=== PATIENT | female | born 1970 | race Caucasian/White ===

== ENCOUNTER 2019-02-17 19:40 | Inpatient (IN) | payer BC, MEDICAID ==
[~2019-02-17] VITALS: Ht 175.3 cm; Wt 84.8 kg
[2019-02-17 19:55] VITALS: BP 113/72
[2019-02-17] MEDS ORDERED: FAMOTIDINE20 MG ORAL (19:55)
[2019-02-17] MEDS ORDERED: CALCIUM ACETAT667 MG PO (19:55)
[2019-02-17] MEDS ORDERED: LEVETIRACE100 MG/1 M GT (19:55)
[2019-02-17] MEDS ORDERED: ABILIFY2 MG ORAL (19:55)
[2019-02-17] MEDS ORDERED: LEXAPRO10 MG ORAL (19:55)
[2019-02-17] MEDS ORDERED: BISACODYL5 MG ORAL (19:55)
[2019-02-17] MEDS ORDERED: SEROQUEL25 MG ORAL (19:55)
[2019-02-17] MEDS ORDERED: BENADRYL25 MG ORAL (19:55)
[2019-02-17] MEDS ORDERED: MELATONIN3 M1 ORAL (19:55)
[2019-02-17] MEDS ORDERED: NEPHROVITE1 TAB ORAL (19:55)
[2019-02-17] MEDS ORDERED: RENVELA0.8 GM ORAL (19:55)
[2019-02-17] MEDS ORDERED: NORCO 5-325 TA1 EACH ORAL (19:55)
[2019-02-17] MEDS ORDERED: ACETAMINOPHEN325 M1 ORAL (19:55)
[2019-02-17] MEDS ORDERED: SENNOSIDES8.6 MG ORAL (19:55)
[2019-02-17] MEDS ORDERED: DOCUSATE SODIU100 MG ORAL (19:55)
--- NOTE | 2019-02-17 20:00 | NUR ---
ED Nurse Note: PATIENT WAS BIBA FROM [facility] FOR RIGHT UPPER ARM FISTULA MALFUNCTION. pATIENT IS BLINDE, aao X4, vss AT THIS TIME, SKIN IS DRY, WARM TO TOUCH.
[2019-02-17 21:08] LABS: EOSINOPHILS % (AUTO) 4.1 % (0.0-3.0); HEMATOCRIT 32.4 % (37.0-47.0); HEMOGLOBIN 10.9 G/DL (12.0-16.0); LYMPHOCYTES % (AUTO) 20.8 % (20.0-45.0); MEAN CORPUSCULAR VOLUME 89 FL (80-99); MONOCYTES % (AUTO) 10.2 % (1.0-10.0); NEUTROPHILS % (AUTO) 63.9 % (45.0-75.0); PLATELET COUNT 138 K/UL (150-450); RED BLOOD COUNT 3.65 M/UL (4.20-5.40); RED CELL DISTRIBUTION WIDTH 13.3 % (11.6-14.8); WHITE BLOOD COUNT 6.9 K/UL (4.8-10.8)
[2019-02-17 21:20] LABS: INR 0.9 (0.9-1.1)
[2019-02-17 21:25] LABS: ANION GAP 10 mmol/L (5-15); BLOOD UREA NITROGEN 82 mg/dL (7-18); CALCIUM 9.1 MG/DL (8.5-10.1); CARBON DIOXIDE 28 MMOL/L (21-32); CHLORIDE 98 MMOL/L (98-107); CREATININE 7.2 MG/DL (0.55-1.30); POTASSIUM 5.1 MMOL/L (3.5-5.1); SODIUM 136 MMOL/L (136-145)
[2019-02-17 21:30] LABS: ALANINE AMINOTRANSFERASE 14 U/L (12-78); ALBUMIN 3.9 G/DL (3.4-5.0); ALBUMIN/GLOBULIN RATIO 1.2 (1.0-2.7); ALKALINE PHOSPHATASE 75 U/L (46-116); ASPARTATE AMINO TRANSFERASE 10 U/L (15-37); BILIRUBIN,TOTAL 0.2 MG/DL (0.2-1.0)
--- NOTE | 2019-02-17 21:45 | Emergency Room Report ---
History of Present Illness General Chief Complaint: General Complaint Source: Patient Present Illness HPI This patient has a history of end-stage renal disease. She presents secondary to AV shunt malfunction. She did get dialysis yesterday. Allergies: Coded Allergies: No Known Allergies (Unverified , 02/17/19) Patient History Past Medical History: see triage record, HTN, renal disease, dialysis, other - Parkinson's, Blind Social History: Denies: smoking, alcohol use, drug use Reviewed Nursing Documentation: PMH: Agreed; PSxH: Agreed Nursing Documentation-PMH Past Medical History: No History, Except For Hx Hypertension: Yes Review of Systems All Other Systems: negative except mentioned in HPI Physical Exam Vital Signs Date Time Temp Pulse Resp B/P (MAP) Pulse Ox O2 Delivery O2 Flow Rate FiO2 02/17/19 19:40 98.2 101 18 113/72 (86) 95 Room Air Sp02 EP Interpretation: reviewed, normal General Appearance: no apparent distress, alert, GCS 15, non-toxic Head: normocephalic, atraumatic Eyes: bilateral eye normal inspection ENT: hearing grossly normal, normal pharynx, no angioedema, normal voice Neck: full range of motion, supple/symm/no masses Respiratory: chest non-tender, lungs clear, normal breath sounds, no respiratory distress, no retraction, no accessory muscle use, speaking full sentences Cardiovascular #1: regular rate, rhythm, no edema Gastrointestinal: normal bowel sounds, non tender, soft, non-distended, no guarding, no rebound Rectal: deferred Musculoskeletal: normal inspection, back normal, normal range of motion Neurologic: alert, oriented x3, responsive, motor strength/tone normal, speech normal Psychiatric: judgement/insight normal, memory normal, mood/affect normal, no suicidal/homicidal ideation Skin: normal color, no rash, warm/dry, well hydrated Medical Decision Making Diagnostic Impression: Primary Impression: AV shunt malfunction ER Course This patient has an AV shunt malfunction. Possibly an AV shunt clot. This patient is admitted for revision of her shunt by vascular surgery. Laboratory Tests Test 02/17/19 20:55 White Blood Count 6.9 K/UL (4.8-10.8) Red Blood Count 3.65 M/UL (4.20-5.40) L Hemoglobin 10.9 G/DL (12.0-16.0) L Hematocrit 32.4 % (37.0-47.0) L Mean Corpuscular Volume 89 FL (80-99) Mean Corpuscular Hemoglobin 29.8 PG (27.0-31.0) Mean Corpuscular Hemoglobin Concent 33.5 G/DL (32.0-36.0) Red Cell Distribution Width 13.3 % (11.6-14.8) Platelet Count 138 K/UL (150-450) L Mean Platelet Volume 6.7 FL (6.5-10.1) Neutrophils (%) (Auto) 63.9 % (45.0-75.0) Lymphocytes (%) (Auto) 20.8 % (20.0-45.0) Monocytes (%) (Auto) 10.2 % (1.0-10.0) H Eosinophils (%) (Auto) 4.1 % (0.0-3.0) H Basophils (%) (Auto) 1.0 % (0.0-2.0) Prothrombin Time 9.6 SEC (9.30-11.50) Prothrombin Time INR 0.9 (0.9-1.1) PTT 18 SEC (23-33) L Sodium Level 136 MMOL/L (136-145) Potassium Level 5.1 MMOL/L (3.5-5.1) Chloride Level 98 MMOL/L (98-107) Carbon Dioxide Level 28 MMOL/L (21-32) Anion Gap 10 mmol/L (5-15) Blood Urea Nitrogen 82 mg/dL (7-18) H Creatinine 7.2 MG/DL (0.55-1.30) H Estimate Glomerular Filtration Rate 6.0 mL/min (>60) Glucose Level 110 MG/DL (74-106) H Calcium Level 9.1 MG/DL (8.5-10.1) Total Bilirubin 0.2 MG/DL (0.2-1.0) Aspartate Amino Transferase (AST) 10 U/L (15-37) L Alanine Aminotransferase (ALT) 14 U/L (12-78) Alkaline Phosphatase 75 U/L (46-116) Total Protein 7.1 G/DL (6.4-8.2) Albumin 3.9 G/DL (3.4-5.0) Globulin 3.2 g/dL Albumin/Globulin Ratio 1.2 (1.0-2.7) Last Vital Signs Date Time Temp Pulse Resp B/P (MAP) Pulse Ox O2 Delivery O2 Flow Rate FiO2 02/17/19 19:40 98.2 101 18 113/72 (86) 95 Room Air Disposition: ADMITTED INPATIENT Condition: Stable Referrals: NON PHYSICIAN (PCP) Mable Escalona DO Feb 17, 2019 21:45
[2019-02-17 21:55] VITALS: BP 115/76
[2019-02-17 23:40] VITALS: BP 115/76
--- NOTE | 2019-02-17 23:40 | NUR ---
ED Nurse Note: PATIENT WAS ADMITED TO [facility] DUE TO RIGHT UPPER ARM FISTULA MALFUNCTION. AAOX4, VSS AT THIS TIME, SKIN IS INTACT, WARM TO TOUCH. PATIENT WAS TRANSFERED VIA GURNEY WITH ALL BELONGINGS.
--- NOTE | 2019-02-17 23:45 | NUR ---
NURSE NOTES: Received admission orders from Dr. Gomez. Noted and carried out.
--- NOTE | 2019-02-17 23:52 | NUR ---
NURSE NOTES: Received report from GUSTAVO Onofre RN. Patient was transferred to 4E Med Surg unit from ER via rde smet without incident. No signs of acute distress noted; denies pain at this time. AOx4; able to make needs known. Right AV shunt noted; thrill and bruit present. Right chest permcath in place. No IV site noted. Will attempt to insert IV access at a later time. Belongings list checked. Bed at lowest position, brakes on, siderails up x3. Call light within reach. Will continue to monitor.
[2019-02-18] VITALS (12 sets, daily range): BP systolic 94–128; BP diastolic 41–70
[2019-02-18] MEDS ORDERED: Docusate 100mg cap ORAL PRN (00:45)
--- NOTE | 2019-02-18 03:48 | NUR ---
NURSE NOTES: Patient is asleep lying semi-moya's; resting comfortably. No signs of acute distress or pain noted at this time.
--- NOTE | 2019-02-18 05:11 | NUR ---
NURSE NOTES: Attempted to call Anna Sky, patient's sister to retrieve consent for patient's revision of malfunctioning AV shunt procedure later today. No answer. Will call back later.
[2019-02-18 06:29] LABS: BASOPHILS % (AUTO) 0.7 % (0.0-2.0); EOSINOPHILS % (AUTO) 4.1 % (0.0-3.0); HEMATOCRIT 35.8 % (37.0-47.0); HEMOGLOBIN 11.3 G/DL (12.0-16.0); LYMPHOCYTES % (AUTO) 17.4 % (20.0-45.0); MEAN CORPUSCULAR VOLUME 94 FL (80-99); NEUTROPHILS % (AUTO) 68.8 % (45.0-75.0); PLATELET COUNT 102 K/UL (150-450); RED BLOOD COUNT 3.81 M/UL (4.20-5.40); RED CELL DISTRIBUTION WIDTH 13.7 % (11.6-14.8); WHITE BLOOD COUNT 6.5 K/UL (4.8-10.8)
[2019-02-18 06:48] LABS: ALANINE AMINOTRANSFERASE 18 U/L (12-78); ALBUMIN 3.9 G/DL (3.4-5.0); ALBUMIN/GLOBULIN RATIO 1.1 (1.0-2.7); ALKALINE PHOSPHATASE 76 U/L (46-116); ANION GAP 11 mmol/L (5-15); ASPARTATE AMINO TRANSFERASE 9 U/L (15-37); BILIRUBIN,TOTAL 0.3 MG/DL (0.2-1.0); BLOOD UREA NITROGEN 93 mg/dL (7-18); CALCIUM 9.5 MG/DL (8.5-10.1); CARBON DIOXIDE 27 MMOL/L (21-32); CHLORIDE 101 MMOL/L (98-107); CREATININE 7.3 MG/DL (0.55-1.30); POTASSIUM 5.8 MMOL/L (3.5-5.1); SODIUM 139 MMOL/L (136-145)
[2019-02-18] MEDS: Calcium Acetate 667mg Tab ORAL SCH ×3 (07:05→17:17)
--- NOTE | 2019-02-18 07:22 | Pre-Procedure Note/Attestation ---
Pre-Procedure Note/Attestation Complete Prior to Procedure Planned Procedure: right Procedure Narrative: right arm fistulogram, possible intervention Indications for Procedure Pre-Operative Diagnosis: AVF malfunction Attestation I attest that I discussed the nature of the procedure; its benefits; risks and complications; and alternatives (and the risks and benefits of such alternatives ), prior to the procedure, with the patient (or the patient's legal publications sales representative). I attest that, if there was a reasonable possibility of needing a blood transfusion, the patient (or the patient's legal publications sales representative) was given the [facility] standardized written summary, pursuant to the Everardo Stephen Blood Safety Act ([place] Health and Safety Code # 1645, as amended). I attest that I re-evaluated the patient just prior to the surgery and that there has been no change in the patient's H&P, except as documented below: Robert Dickey MD Feb 18, 2019 07:22
[2019-02-18] MEDS ORDERED: Isovue-M 300 15ml INJ ONE (07:26)
[2019-02-18] MEDS ORDERED: Bacitracin Oint 15gm Tube TOPIC ONE (07:26)
[2019-02-18] MEDS ORDERED: Lidocaine 1% Plain 30 ml INJ ONE (07:27)
[2019-02-18] MEDS ORDERED: Bacitracin 50000 Units Vial ONE (07:27)
[2019-02-18] MEDS ORDERED: Heparin 1000 units/ml 1ml Vial ONE (07:27)
[2019-02-18] MEDS ORDERED: Bupivacaine 0.5% Inj 30 ml vial INJ ONE (07:27)
[2019-02-18] MEDS ORDERED: Heparin 5000 units/ml inj ONE (07:27)
[2019-02-18] MEDS ORDERED: Iothalamate Meglumine 60% 30ML INJ ONE (07:27)
--- NOTE | 2019-02-18 07:30 | NUR ---
HAND-OFF: Report given to STEFFEN CAMARILLO.
--- NOTE | 2019-02-18 07:42 | NUR ---
HAND-OFF: Report given to CED Ramirez. Patient is asleep lying semi-moya's; resting comfortably. Endorsed to oncoming RN regarding patient's procedure later today; verbalized understanding. In stable condition.
--- NOTE | 2019-02-18 07:51 | NUR ---
NURSE NOTES: Patient resting in bed. A/O x 4 calm and cooperative. Denies pain. no respiratory distress noted. NPO. call light within reach. bed alarm on. will continue to monitor.
--- NOTE | 2019-02-18 07:59 | NUR ---
NURSE NOTES: Patient in bed , took down for procedure. VSS. pt Awake, A/o x 4, calm and cooperative. Denies pain. no SOB. Room air. NPO.
[2019-02-18] MEDS ORDERED: Zemuron 50mg/5ml Inj IV ONE (08:18)
[2019-02-18] MEDS ORDERED: fentaNYL 100 mcg/2 mL IV ONE (08:20)
[2019-02-18] MEDS ORDERED: Midazolam 2mg/2ml Inj ONE (08:50)
--- NOTE | 2019-02-18 08:51 | History & Physical ---
History and Physical History & Physicial Patient in the OR. Will be revisited. And HP will be completed. Nephro: Idalia Dwyer MD Feb 18, 2019 08:51
[2019-02-18] MEDS: Nephrovite tab (Rena-Vite) ORAL SCH (09:00)
[2019-02-18] MEDS ORDERED: LR 1000ml ONE (09:00)
[2019-02-18] MEDS ORDERED: NS Irrig 1000ml ONE (09:00)
[2019-02-18] MEDS ORDERED: Sterile Water Irrig 1000ml IRRIG ONE (09:00)
--- NOTE | 2019-02-18 09:23 | NUR ---
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 ESRD VS: BP 113/72, P 101, T 98.3, RR 18, SpO2 95 RBC 3.65, H&H 10.9/32.4, Plt. Count 138, BUN 82, CR 7.2, AST 10 IS:PHOSLO 667mg ADMITTED TO MED/SURG DCP: RETURN TO [facility]
[2019-02-18] MEDS ORDERED: Phenylephrine 10mg/ml Vial ONE (10:08)
[2019-02-18] MEDS ORDERED: Lidocaine 1% MPF 10mg/ml 5ml ONE (10:08)
[2019-02-18] MEDS ORDERED: Esmolol 100mg/10ml Inj ONE (10:08)
[2019-02-18] MEDS ORDERED: Propofol 200mg/20ml IV ONE (10:08)
--- NOTE | 2019-02-18 10:50 | NUR ---
*-* NO INSURANCE INFORMATION UNABLE TO SEND CLINICALS OR REVIEWS *-*
--- NOTE | 2019-02-18 10:54 | Anethesia Preoperative Eval ---
Anesthesia Pre-op PMH/ROS General Date of Evaluation: Feb 18, 2019 Time of Evaluation: 08:50 Anesthesiologist: georgette ASA Score: ASA 4 Mallampati Score Class I : Soft palate, uvula, fauces, pillars visible Class II: Soft palate, uvula, fauces visible Class III: Soft palate, base of uvula visible Class IV: Only hard plate visible Mallampati Classification: Class III Surgeon: Keli Diagnosis: [facility] Procedure: revision due to malfunction of AV fistula Anesthesia History: none Family History: no anesthesia problems Allergies: Coded Allergies: No Known Allergies (Unverified , 02/17/19) Patient NPO?: Yes NPO Date: Feb 18, 2019 NPO Time: 0000 Past Medical History Cardiovascular: Reports: CAD Gastrointestinal/Genitourinary: Reports: GERD, ESRD - dialized 02/16 Neurologic/Psychiatric: Reports: depression/anxiety Endocrine: Denies: DM, hypothyroidism, steroids, other HEENT: Reports: other - blind both eyes; Denies: cataract (L), cataract (R), glaucoma, [place] (L), [place] (R) Other: obesity, other - Pakinson's Anesthesia Pre-op Phys. Exam Physician Exam Last Vital Signs Date Time Temp Pulse Resp B/P (MAP) Pulse Ox O2 Delivery O2 Flow Rate FiO2 02/18/19 04:00 97.4 99 18 112/69 (83) 94 02/18/19 00:32 Room Air Constitutional: NAD Neurologic: CN 2-12 intact Cardiovascular: RRR Respiratory: CTA Gastrointestinal: S/NT/ND Airway Exam Mallampati Classification 3 Mallampati Score: Class III MO: limited Neck: thick TMD: 2fb ROM: limited Teeth: missing, broken Anesthesia Pre-op A/P Labs Hematology Test 02/17/19 20:55 02/18/19 05:35 White Blood Count 6.9 K/UL (4.8-10.8) 6.5 K/UL (4.8-10.8) Red Blood Count 3.65 M/UL (4.20-5.40) L 3.81 M/UL (4.20-5.40) L Hemoglobin 10.9 G/DL (12.0-16.0) L 11.3 G/DL (12.0-16.0) L Hematocrit 32.4 % (37.0-47.0) L 35.8 % (37.0-47.0) L Mean Corpuscular Volume 89 FL (80-99) 94 FL (80-99) Mean Corpuscular Hemoglobin 29.8 PG (27.0-31.0) 29.6 PG (27.0-31.0) Mean Corpuscular Hemoglobin Concent 33.5 G/DL (32.0-36.0) 31.6 G/DL (32.0-36.0) L Red Cell Distribution Width 13.3 % (11.6-14.8) 13.7 % (11.6-14.8) Platelet Count 138 K/UL (150-450) L 102 K/UL (150-450) L Mean Platelet Volume 6.7 FL (6.5-10.1) 7.9 FL (6.5-10.1) Neutrophils (%) (Auto) 63.9 % (45.0-75.0) 68.8 % (45.0-75.0) Lymphocytes (%) (Auto) 20.8 % (20.0-45.0) 17.4 % (20.0-45.0) L Monocytes (%) (Auto) 10.2 % (1.0-10.0) H 9.0 % (1.0-10.0) Eosinophils (%) (Auto) 4.1 % (0.0-3.0) H 4.1 % (0.0-3.0) H Basophils (%) (Auto) 1.0 % (0.0-2.0) 0.7 % (0.0-2.0) Coagulation Test 02/17/19 20:55 Prothrombin Time 9.6 SEC (9.30-11.50) Prothromb Time International Ratio 0.9 (0.9-1.1) Activated Partial Thromboplast Time 18 SEC (23-33) L Chemistry Test 02/17/19 20:55 02/18/19 05:35 Sodium Level 136 MMOL/L (136-145) 139 MMOL/L (136-145) Potassium Level 5.1 MMOL/L (3.5-5.1) 5.8 MMOL/L (3.5-5.1) H Chloride Level 98 MMOL/L (98-107) 101 MMOL/L (98-107) Carbon Dioxide Level 28 MMOL/L (21-32) 27 MMOL/L (21-32) Anion Gap 10 mmol/L (5-15) 11 mmol/L (5-15) Blood Urea Nitrogen 82 mg/dL (7-18) H 93 mg/dL (7-18) H Creatinine 7.2 MG/DL (0.55-1.30) H 7.3 MG/DL (0.55-1.30) H Estimat Glomerular Filtration Rate 6.0 mL/min (>60) 5.9 mL/min (>60) Glucose Level 110 MG/DL (74-106) H 103 MG/DL (74-106) Calcium Level 9.1 MG/DL (8.5-10.1) 9.5 MG/DL (8.5-10.1) Total Bilirubin 0.2 MG/DL (0.2-1.0) 0.3 MG/DL (0.2-1.0) Aspartate Amino Transf (AST/SGOT) 10 U/L (15-37) L 9 U/L (15-37) L Alanine Aminotransferase (ALT/SGPT) 14 U/L (12-78) 18 U/L (12-78) Alkaline Phosphatase 75 U/L (46-116) 76 U/L (46-116) Total Protein 7.1 G/DL (6.4-8.2) 7.6 G/DL (6.4-8.2) Albumin 3.9 G/DL (3.4-5.0) 3.9 G/DL (3.4-5.0) Globulin 3.2 g/dL 3.7 g/dL Albumin/Globulin Ratio 1.2 (1.0-2.7) 1.1 (1.0-2.7) Studies Pre-op Studies: EKG - st Risk Assessment & Plan Assessment: pt is oriented x4; however, surgical consent obtained from sister. Plan: General ETT Status Change Before Surgery: No Pre-Antibiotics Drug: ancef Given Within 1 Hr of Incision: Yes Time Given: 09:05 Tiara Smith FRENCH PROFESSOR Feb 18, 2019 10:54
[2019-02-18] MEDS ORDERED: fentaNYL 100 mcg/2 mL IV PRN (11:00)
[2019-02-18] MEDS ORDERED: LORazepam Inj 2mg/ml 1ml IV PRN (11:00)
--- NOTE | 2019-02-18 11:56 | Brief Operative Note ---
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 record Estimated Blood Loss: minimal Drains: none Implant(s) used?: No Robert Dickey MD Feb 18, 2019 11:56
[2019-02-18] MEDS ORDERED: Heparin Sod 1000 units/ml 10ml ONE (12:00)
--- NOTE | 2019-02-18 12:15 | Immediate Post-Op Evaluation ---
Immediate Post-Op Evalulation Immediate Post-Op Evalulation Procedure: Revision Right malfunction AV fistula Date of Evaluation: Feb 18, 2019 Time of Evaluation: 12:14 IV Fluids: 400 Blood Pressure Systolic: 105 Blood Pressure Diastolic: 65 Pulse Rate: 105 Respiratory Rate: 14 O2 Sat by Pulse Oximetry: 100 Temperature (Fahrenheit): 97.1 Nausea: No Vomiting: No Complications none Patient Status: awake, reacts, patent Hydration Status: adequate Drug: ancef Given Within 1 Hr of Incision: Yes Tiara Smith CRNA Feb 18, 2019 12:15
[2019-02-18] MEDS: Hydromorphone 0.5mg/0.5ml inj IVP PRN ×2 (12:19→14:56)
--- NOTE | 2019-02-18 13:40 | NUR ---
NURSE NOTES: pt resting in bed. VSS. Room air. Denies pain. AV fisstula RUE, bruit and thrill present. AV fistula on LUE. Perm cath on right chest. IV site left hand, flush without difficulty. tolerating diet. no N/V. call light within reach. bed alarm on. bed in low position. will continue to monitor.
--- NOTE | 2019-02-18 14:39 | NUR ---
NURSE NOTES: Pt K 5.8, notified , received new order. call made to [facility] dialysis Center, spoke with Lucinda regarding dialysis appt today, Lucinda will notify Dialysis nurse. waiting for call back.
--- NOTE | 2019-02-18 15:12 | Consultation ---
Consult Note Consult Note I was asked by Dr Gomez to arrange for dialysis 48 y old female Obese psych condition Sz disorder ESRD past 9 years Admitted with malfunctioning dialysis access underwent vascular procedure now need dialysis for K of 5.8 interviewed examined has right arm old fistual- Left arm new fistula - right upper chest dialysis cath data reviewed . Assessment/Plan ESRD Dialysis access malfunction Psych Disease Sz disorder HD ordered Keep BP in check per orders Riley Patel MD Feb 18, 2019 15:12
--- NOTE | 2019-02-18 15:54 | Diagnostic Imaging Report ---
INDICATION: Pain, intraoperative TECHNIQUE: Intraoperative imaging Fluoroscopy time: 2070 seconds Total dose: 5.93 mGym2 Total number of images: 7 COMPARISON: None FINDINGS: Please refer to Dr. Dickey's dictated report IMPRESSION: Intraoperative imaging
--- NOTE | 2019-02-18 17:58 | Consultation ---
History of Present Illness General Chief Complaint: General Complaint Present Illness Allergies: Coded Allergies: No Known Allergies (Unverified , 02/17/19) Medication History Scheduled Aripiprazole* (Abilify*), 5 MG ORAL DAILY, (Reported) Bisacodyl* (Dulcolax*), 10 MG ORAL DAILY, (Reported) Docusate Sodium* (Docusate Sodium*), 100 MG ORAL THREE TIMES A DAY, (Reported) Famotidine (Famotidine), 20 MG ORAL DAILY, (Reported) Levetiracetam* (Levetiracetam*), 500 MG GT BID, (Reported) Quetiapine Fumarate* (Seroquel*), 50 MG ORAL DAILY, (Reported) Sennosides* (Sennosides*), 8.6 MG ORAL DAILY, (Reported) Sevelamer Carbonate* (Renvela*), 800 MG ORAL THREE TIMES A DAY, (Reported) Vitamin B Cmplx/Vit C/Folic AC (Nephro-Lilia Tablet), 1 TAB ORAL DAILY, (Reported ) Scheduled PRN Acetaminophen* (Acetaminophen 325MG Tablet*), 650 MG ORAL Q4H PRN for Mild Pain (Pain Scale 1-3), (Reported) Diphenhydramine Hcl* (Benadryl*), 25 MG ORAL Q6H PRN for Itching, (Reported) Hydrocodone Bit/Acetaminophen 5-325* ([place]road 5-325*), 1 TAB ORAL Q6H PRN for For Pain, (Reported) Discontinued Medications Calcium Acetate (Calcium Acetate), 667 MG PO, (Reported) Discontinued Reason: discontinued med Escitalopram Oxalate* (Lexapro*), 10 MG ORAL DAILY, (Reported) Discontinued Reason: Medication dose changed Patient History Healthcare decision maker Resuscitation status Full Code Advanced Directive on File Physical Exam Last 24 Hour Vital Signs Date Time Temp Pulse Resp B/P (MAP) Pulse Ox O2 Delivery O2 Flow Rate FiO2 02/18/19 16:00 98.2 101 94/46 (62) 02/18/19 15:26 98.1 02/18/19 13:40 Room Air 02/18/19 13:40 Room Air 02/18/19 13:35 98.1 100 109/70 (83) 02/18/19 12:47 106 20 124/64 96 Nasal Cannula 3 02/18/19 12:40 97.2 106 19 113/61 98 Nasal Cannula 3 02/18/19 12:30 107 18 126/41 99 Nasal Cannula 3 02/18/19 12:20 108 18 125/61 100 Nasal Cannula 3 02/18/19 12:15 105 14 100 02/18/19 12:10 109 19 121/49 100 Simple Mask 6 02/18/19 12:05 107 20 128/47 100 Simple Mask 6 02/18/19 12:00 97.2 111 18 104/66 99 Simple Mask 6 02/18/19 08:00 Room Air 02/18/19 04:00 97.4 99 18 112/69 (83) 94 02/18/19 00:32 Room Air 02/18/19 00:30 97.4 99 20 111/55 (73) 92 02/17/19 23:40 98.2 16 115/76 95 Room Air 02/17/19 23:40 98.2 16 115/76 95 Room Air 02/17/19 21:55 98.2 16 115/76 95 Room Air 02/17/19 19:55 101 18 Room Air 02/17/19 19:55 98.2 18 113/72 95 Room Air 02/17/19 19:40 98.2 101 18 113/72 (86) 95 Room Air Intake and Output 02/17/19 02/18/19 18:59 06:59 Intake Total 101 ml Output Total 100 ml Balance 1 ml Intake Oral 101 ml Output Urine Total 100 ml # Voids 1 Laboratory Tests Test 02/17/19 20:55 02/18/19 05:35 White Blood Count 6.9 K/UL (4.8-10.8) 6.5 K/UL (4.8-10.8) Red Blood Count 3.65 M/UL (4.20-5.40) L 3.81 M/UL (4.20-5.40) L Hemoglobin 10.9 G/DL (12.0-16.0) L 11.3 G/DL (12.0-16.0) L Hematocrit 32.4 % (37.0-47.0) L 35.8 % (37.0-47.0) L Mean Corpuscular Volume 89 FL (80-99) 94 FL (80-99) Mean Corpuscular Hemoglobin 29.8 PG (27.0-31.0) 29.6 PG (27.0-31.0) Mean Corpuscular Hemoglobin Concent 33.5 G/DL (32.0-36.0) 31.6 G/DL (32.0-36.0) L Red Cell Distribution Width 13.3 % (11.6-14.8) 13.7 % (11.6-14.8) Platelet Count 138 K/UL (150-450) L 102 K/UL (150-450) L Mean Platelet Volume 6.7 FL (6.5-10.1) 7.9 FL (6.5-10.1) Neutrophils (%) (Auto) 63.9 % (45.0-75.0) 68.8 % (45.0-75.0) Lymphocytes (%) (Auto) 20.8 % (20.0-45.0) 17.4 % (20.0-45.0) L Monocytes (%) (Auto) 10.2 % (1.0-10.0) H 9.0 % (1.0-10.0) Eosinophils (%) (Auto) 4.1 % (0.0-3.0) H 4.1 % (0.0-3.0) H Basophils (%) (Auto) 1.0 % (0.0-2.0) 0.7 % (0.0-2.0) Prothrombin Time 9.6 SEC (9.30-11.50) Prothromb Time International Ratio 0.9 (0.9-1.1) Activated Partial Thromboplast Time 18 SEC (23-33) L Sodium Level 136 MMOL/L (136-145) 139 MMOL/L (136-145) Potassium Level 5.1 MMOL/L (3.5-5.1) 5.8 MMOL/L (3.5-5.1) H Chloride Level 98 MMOL/L (98-107) 101 MMOL/L (98-107) Carbon Dioxide Level 28 MMOL/L (21-32) 27 MMOL/L (21-32) Anion Gap 10 mmol/L (5-15) 11 mmol/L (5-15) Blood Urea Nitrogen 82 mg/dL (7-18) H 93 mg/dL (7-18) H Creatinine 7.2 MG/DL (0.55-1.30) H 7.3 MG/DL (0.55-1.30) H Estimat Glomerular Filtration Rate 6.0 mL/min (>60) 5.9 mL/min (>60) Glucose Level 110 MG/DL (74-106) H 103 MG/DL (74-106) Calcium Level 9.1 MG/DL (8.5-10.1) 9.5 MG/DL (8.5-10.1) Total Bilirubin 0.2 MG/DL (0.2-1.0) 0.3 MG/DL (0.2-1.0) Aspartate Amino Transf (AST/SGOT) 10 U/L (15-37) L 9 U/L (15-37) L Alanine Aminotransferase (ALT/SGPT) 14 U/L (12-78) 18 U/L (12-78) Alkaline Phosphatase 75 U/L (46-116) 76 U/L (46-116) Total Protein 7.1 G/DL (6.4-8.2) 7.6 G/DL (6.4-8.2) Albumin 3.9 G/DL (3.4-5.0) 3.9 G/DL (3.4-5.0) Globulin 3.2 g/dL 3.7 g/dL Albumin/Globulin Ratio 1.2 (1.0-2.7) 1.1 (1.0-2.7) Levetiracetam (Keppra) Level Pending Microbiology Date/Time Source Procedure Growth Status 02/17/19 22:45 Rectum Received Height (Feet): 5 Height (Inches): 9.00 Weight (Pounds): 172 Medications Current Medications Medications (Trade) Dose Ordered Sig/Maritza Route PRN Reason Start Time Stop Time Status Last Admin Dose Admin Acetaminophen (Tylenol) 650 mg Q4H PRN ORAL Mild Pain (Pain Scale 1-3) 02/18/19 00:45 03/20/19 00:44 Acetaminophen/ Hydrocodone Bitart ([place] 5/325) 1 tab Q6H PRN ORAL For Pain 4-10 02/18/19 00:45 02/25/19 00:44 Aripiprazole (Abilify) 5 mg DAILY ORAL 02/18/19 09:00 03/20/19 08:59 Bisacodyl (Dulcolax) 10 mg QHS PRN RECTAL Constipation 02/18/19 01:15 03/20/19 00:44 Calcium Acetate (Phoslo) 667 mg TIAC ORAL 02/18/19 06:30 03/20/19 06:29 02/18/19 17:17 Diphenhydramine HCl (Benadryl) 25 mg Q6H PRN ORAL Itching 02/18/19 00:45 03/20/19 00:44 Docusate Sodium (Colace) 100 mg TID PRN ORAL Constipation 02/18/19 00:45 03/20/19 00:44 Famotidine (Pepcid) 20 mg DAILY ORAL 02/18/19 09:00 03/20/19 08:59 Levetiracetam (Keppra) 500 mg Q12HR ORAL 02/18/19 09:00 03/20/19 08:59 Quetiapine Fumarate (SEROquel) 50 mg BEDTIME ORAL 02/18/19 21:00 03/20/19 20:59 Sevelamer Carbonate (Renvela) 800 mg THREE TIMES A DAY ORAL 02/18/19 09:00 03/20/19 08:59 02/18/19 17:17 Vitamin B Complex/ Vit C/Folic Acid (Nephrovite) 1 tab DAILY ORAL 02/18/19 09:00 03/20/19 08:59 Assessment/Plan Assessment/Plan: Hematology Consultation DOS: 02/18/19 JANINE LEROY: Idalia Gomez Chief Complaint: General Complaint RFC: Low platelets and anemia eval HPI This patient has a history of end-stage renal disease. She presents secondary to AV shunt malfunction. She did get dialysis yesterday. Has been admitted before, now with low plts, seen by renal and needs to reinitiate HD Allergies: Coded Allergies: No Known Allergies (Unverified , 02/17/19) Past Medical History: see triage record, HTN, renal disease, dialysis, other - Parkinson's, Blind Social History: Denies: smoking, alcohol use, drug use Reviewed Nursing Documentation: PMH: Agreed; PSxH: Agreed Past Medical History: No History, Except For Hx Hypertension: Yes Review of Systems: negative except mentioned in HPI PE Vital Signs Date Time Temp Pulse Resp B/P (MAP) Pulse Ox O2 Delivery O2 Flow Rate FiO2 02/17/19 19:40 98.2 101 18 113/72 (86) 95 Room Air Vitals: reviewed, normal Gen: no apparent distress, alert, GCS 15, non-toxic Head: normocephalic, atraumatic Eyes: bilateral eye normal inspection ENT: hearing grossly normal, normal pharynx, no angioedema, normal voice Neck: full range of motion, supple/symm/no masses Respiratory: chest non-tender, lungs clear, normal breath sounds Cv: regular rate, rhythm, no edema Gastrointestinal: normal bowel sounds, non tender, soft, non-distended, no guarding, no rebound Rectal: deferred Musculoskeletal: normal inspection, back normal, normal range of motion Skin: normal color, no rash, warm/dry, well hydrated Last 24 Hour Vital Signs Date Time Temp Pulse Resp B/P (MAP) Pulse Ox O2 Delivery O2 Flow Rate FiO2 02/18/19 16:00 98.2 101 94/46 (62) 02/18/19 15:26 98.1 02/18/19 13:40 Room Air 02/18/19 13:40 Room Air 02/18/19 13:35 98.1 100 109/70 (83) 02/18/19 12:47 106 20 124/64 96 Nasal Cannula 3 02/18/19 12:40 97.2 106 19 113/61 98 Nasal Cannula 3 02/18/19 12:30 107 18 126/41 99 Nasal Cannula 3 02/18/19 12:20 108 18 125/61 100 Nasal Cannula 3 02/18/19 12:15 105 14 100 02/18/19 12:10 109 19 121/49 100 Simple Mask 6 02/18/19 12:05 107 20 128/47 100 Simple Mask 6 02/18/19 12:00 97.2 111 18 104/66 99 Simple Mask 6 02/18/19 08:00 Room Air 02/18/19 04:00 97.4 99 18 112/69 (83) 94 02/18/19 00:32 Room Air 02/18/19 00:30 97.4 99 20 111/55 (73) 92 02/17/19 23:40 98.2 16 115/76 95 Room Air 02/17/19 23:40 98.2 16 115/76 95 Room Air 02/17/19 21:55 98.2 16 115/76 95 Room Air 02/17/19 19:55 101 18 Room Air 02/17/19 19:55 98.2 18 113/72 95 Room Air 02/17/19 19:40 98.2 101 18 113/72 (86) 95 Room Air Active Scripts Medications Dose Route/Sig Max Daily Dose Days Date Category Renvela* (Sevelamer Carbonate) 0.8 Gm Powd.pack 800 Mg ORAL THREE TIMES A DAY 02/17/19 Reported Seroquel* (Quetiapine Fumarate) 25 Mg Tablet 50 Mg ORAL DAILY 02/17/19 Reported Sennosides* (Sennosides) 8.6 Mg Tablet 8.6 Mg ORAL DAILY 02/17/19 Reported [place] 5-325* (Acetaminophen/Hydrocodone Bitart) 1 Each Tablet 1 Tab ORAL Q6H PRN 02/17/19 Reported Nephro-Lilia Tablet (Vitamin B Complex/Vit C/Folic Acid) 0.8 Mg Tablet 1 Tab ORAL DAILY 02/17/19 Reported Levetiracetam* (Levetiracetam) 100 Mg/1 Ml Solution 500 Mg GT BID 02/17/19 Reported Famotidine 20 Mg Tablet 20 Mg ORAL DAILY 02/17/19 Reported Dulcolax* (Bisacodyl) 5 Mg Tablet.dr 10 Mg ORAL DAILY 02/17/19 Reported Docusate Sodium* (Docusate Sodium) 100 Mg Capsule 100 Mg ORAL THREE TIMES A DAY 02/17/19 Reported Benadryl* (Diphenhydramine HCl) 25 Mg Capsule 25 Mg ORAL Q6H PRN 02/17/19 Reported Acetaminophen 325MG Tablet* (Acetaminophen) 325 Mg Tablet 650 Mg ORAL Q4H PRN 02/17/19 Reported Abilify* (Aripiprazole) 2 Mg Tablet 5 Mg ORAL DAILY 02/17/19 Reported Laboratory Tests Test 02/17/19 20:55 White Blood Count 6.9 K/UL (4.8-10.8) Red Blood Count 3.65 M/UL (4.20-5.40) L Hemoglobin 10.9 G/DL (12.0-16.0) L Hematocrit 32.4 % (37.0-47.0) L Mean Corpuscular Volume 89 FL (80-99) Mean Corpuscular Hemoglobin 29.8 PG (27.0-31.0) Mean Corpuscular Hemoglobin Concent 33.5 G/DL (32.0-36.0) Red Cell Distribution Width 13.3 % (11.6-14.8) Platelet Count 138 K/UL (150-450) L Mean Platelet Volume 6.7 FL (6.5-10.1) Neutrophils (%) (Auto) 63.9 % (45.0-75.0) Lymphocytes (%) (Auto) 20.8 % (20.0-45.0) Monocytes (%) (Auto) 10.2 % (1.0-10.0) H Eosinophils (%) (Auto) 4.1 % (0.0-3.0) H Basophils (%) (Auto) 1.0 % (0.0-2.0) Prothrombin Time 9.6 SEC (9.30-11.50) Prothrombin Time INR 0.9 (0.9-1.1) PTT 18 SEC (23-33) L Sodium Level 136 MMOL/L (136-145) Potassium Level 5.1 MMOL/L (3.5-5.1) Chloride Level 98 MMOL/L (98-107) Carbon Dioxide Level 28 MMOL/L (21-32) Anion Gap 10 mmol/L (5-15) Blood Urea Nitrogen 82 mg/dL (7-18) H Creatinine 7.2 MG/DL (0.55-1.30) H Estimate Glomerular Filtration Rate 6.0 mL/min (>60) Glucose Level 110 MG/DL (74-106) H Calcium Level 9.1 MG/DL (8.5-10.1) Total Bilirubin 0.2 MG/DL (0.2-1.0) Aspartate Amino Transferase (AST) 10 U/L (15-37) L Alanine Aminotransferase (ALT) 14 U/L (12-78) Alkaline Phosphatase 75 U/L (46-116) Total Protein 7.1 G/DL (6.4-8.2) Albumin 3.9 G/DL (3.4-5.0) Globulin 3.2 g/dL Albumin/Globulin Ratio 1.2 (1.0-2.7) Assessment and Recs: # Thrombocytopenia - potential causes multifactorial, evaluate liver and viral etiologies to begin, also could be related to underlying medications patient has received. --> Hep panel and HIV ordered --> US abd to evaluate for cirrhosis and hsm ordered --> Peripheral smear ordered to evaluate for blasts /schistocytes --> abx and other meds have been reviewed --> ok for ppx if plt >50k w/ either heparin or lovenox --> Transfuse if Plt < 20k and fever, or if Plt < 10k without fever # Anemia of chronic disease (or of iron deficiency) due to underlying chronic medical issues, multifactorial is due to ckd likely --> Anemia workup has been ordered, rule out gi bleed --> No evidence of hemolysis is noted, peripheral smear has been reviewed. --> Hgb goal >7. Transfuse prn. --> Epogen or iron at this time is not particularly indicated --> Medications have been reviewed # AV shunt malfunction ---> Possibly an AV shunt clot. This patient is admitted for revision of her shunt by vascular surgery. # ESRD as per HD --> renal recs appreciated # Hyperkalemia --> kayxelate prn The timing of this note does not necessarily reflect the time of the patient was seen. GREATLY APPRECIATE CONSULTATION. Kenyon Ortiz MD Feb 18, 2019 17:58
[2019-02-18] MEDS: HYDROcodone/Acetamin 5/325 tab ORAL PRN (18:47)
--- NOTE | 2019-02-18 19:30 | NUR ---
NURSE NOTES: HEMODIALYSIS ONGOING VIA PERMA CATH/RIGHT CHEST, TOLERATING WELL, NO SIGNS AND SYMPTOMS OF DISTRESS, B/P 127/67.
--- NOTE | 2019-02-18 19:33 | NUR ---
HAND-OFF: Report given to Debo COUGHLIN.
--- NOTE | 2019-02-18 22:45 | NUR ---
NURSE NOTES: HEMODIALYSIS COMPLETE, TOLERATED WELL, B/P 99/49, ASYMPTOMATIC; PERMA CATH CLAMPED, NO SIGNS OF BLEEDING NOTED.
[2019-02-19] VITALS: BP 98/57
[2019-02-19 04:00] VITALS: BP_SYST 102; BP_SYST 98; BP_DIAS 51; BP_DIAS 57
[2019-02-19] MEDS: Calcium Acetate 667mg Tab ORAL SCH ×3 (05:33→17:13)
--- NOTE | 2019-02-19 06:00 | NUR ---
NURSE NOTES: RESTED WELL, NO SIGNIFICANT CHANGE OF CONDITION NOTED THROUGHOUT THE NIGHT. SAFETY MAINTAINED. NAD.
[2019-02-19 08:00] VITALS: BP 96/59
--- NOTE | 2019-02-19 08:19 | 48 Hour Post Anesthesia Eval ---
Post Anesthesia Evaluation Procedure: Revision Right malfunction AV fistula Date of Evaluation: Feb 19, 2019 Time of Evaluation: 08:19 Blood Pressure Systolic: 101 0: 80 Pulse Rate: 84 Respiratory Rate: 47 O2 Sat by Pulse Oximetry: 96 Airway: patent Nausea: No Vomiting: No Hydration Status: adequate Cardiopulmonary Status: stable Mental Status/LOC: patient returned to baseline Follow-up Care/Observations: na Post-Anesthesia Complications: none Follow-up care needed: N/A Tiara Smith CRNA Feb 19, 2019 08:19
[2019-02-19 09:09] LABS: % IRON SATURATION 49 % (15-50); IRON 88 ug/dL (50-175); TOTAL IRON BINDING CAPACITY 178 ug/dL (250-450)
[2019-02-19] MEDS: Nephrovite tab (Rena-Vite) ORAL SCH (09:14)
[2019-02-19 09:21] LABS: HEMATOCRIT 28.6 % (37.0-47.0); HEMOGLOBIN 9.3 G/DL (12.0-16.0); MEAN CORPUSCULAR VOLUME 92 FL (80-99); PLATELET COUNT 90 K/UL (150-450); RED CELL DISTRIBUTION WIDTH 13.7 % (11.6-14.8)
--- NOTE | 2019-02-19 09:26 | Diagnostic Imaging Report ---
Indication: Abdominal pain, abnormal renal function tests Technique: Huerta-scale and duplex images of the upper abdomen were obtained Doppler interrogation of the hepatic and pancreatic vessels Comparison: none Findings: Gallbladder is unremarkable, without stones, wall thickening, nor pericholecystic fluid. Sonographic Ndiaye's sign is negative. Common bile duct measures 4 mm in diameter. No intrahepatic biliary ductal dilatation. Liver demonstrates coarsened echogenicity. 2 adjacent small cysts are seen in the left hepatic lobe measuring up to 12 mm diameter. 9 mm cyst is seen in the right hepatic lobe.. No surface nodularity. Portal vein and hepatic veins are patent. Pancreas is unremarkable. Spleen is unremarkable. Left kidney measures 6.6 cm in length. Right kidney measures 6.1 cm length. Both kidneys demonstrate increased echogenicity. There are small renal cysts on the right. There is questionably minimal right hydronephrosis. Non-aneurysmal abdominal aorta . Impression: Negative for gallstones or dilated bile ducts Coarsened hepatic echogenicity, may indicate hepatocellular disease. No definite surface nodularity to suggest cirrhosis, however Atrophic echogenic bilateral kidneys, consistent with known history of chronic renal disease. Questionable mild right hydronephrosis, etiology/significance uncertain Hepatic and small right renal cysts incidentally noted
[2019-02-19 09:27] LABS: ALANINE AMINOTRANSFERASE 11 U/L (12-78); ALBUMIN 3.4 G/DL (3.4-5.0); ALBUMIN/GLOBULIN RATIO 1.1 (1.0-2.7); ALKALINE PHOSPHATASE 66 U/L (46-116); ANION GAP 9 mmol/L (5-15); ASPARTATE AMINO TRANSFERASE 13 U/L (15-37); BILIRUBIN,TOTAL 0.2 MG/DL (0.2-1.0); BLOOD UREA NITROGEN 60 mg/dL (7-18); CALCIUM 8.6 MG/DL (8.5-10.1); CARBON DIOXIDE 30 MMOL/L (21-32); CHLORIDE 102 MMOL/L (98-107); CHOLESTEROL 127 MG/DL (< 200); CREATININE 5.4 MG/DL (0.55-1.30); FERRITIN 1401 NG/ML (8-388); GAMMA GLUTAMYL TRANSPEPTIDASE 11 U/L (5-85); HDL CHOLESTEROL 61 MG/DL (40-60); SODIUM 141 MMOL/L (136-145); TRIGLYCERIDES 47 MG/DL (30-150)
[2019-02-19] MEDS: HYDROcodone/Acetamin 5/325 tab ORAL PRN (12:07)
[2019-02-19 12:17] VITALS: BP 99/48
--- NOTE | 2019-02-19 12:43 | General Progress Note ---
Assessment/Plan Assessment/Plan: patient is seen and examined. Full Dictation in progress Subjective Allergies: Coded Allergies: No Known Allergies (Unverified , 02/17/19) Objective Last 24 Hour Vital Signs Date Time Temp Pulse Resp B/P (MAP) Pulse Ox O2 Delivery O2 Flow Rate FiO2 02/19/19 12:17 98.2 109 18 99/48 (65) 94 02/19/19 09:00 Room Air 02/19/19 08:19 84 47 96 02/19/19 08:00 98.3 111 18 96/59 (71) 97 02/19/19 04:00 97.0 101 18 102/51 (68) 95 02/19/19 00:00 97.1 104 18 98/57 (71) 94 02/18/19 20:51 Room Air 02/18/19 20:00 98.7 99 99/51 (67) 02/18/19 16:00 98.2 101 94/46 (62) 02/18/19 15:26 98.1 02/18/19 13:40 Room Air 02/18/19 13:40 Room Air 02/18/19 13:35 98.1 100 109/70 (83) 02/18/19 12:47 106 20 124/64 96 Nasal Cannula 3 Intake and Output 02/18/19 02/19/19 19:00 07:00 Intake Total 550 ml 240 ml Output Total 50 ml Balance 500 ml 240 ml Intake Oral 200 ml 240 ml IV Total 350 ml Estimated Blood Loss 50 ml # Voids 1 Laboratory Tests 02/18/19 19:45: Reticulocyte Count 0.4L, Prothrombin Time 10.3, Prothromb Time International Ratio 1.0, Lactate Dehydrogenase 162, Hepatitis A IgM Antibody [Pending], Hepatitis B Surface Antigen [Pending], Hepatitis B Core IgM Antibody [Pending], Hepatitis C Antibody [Pending], HIV (1&2) Antibody Rapid Negative 02/19/19 07:07: White Blood Count 6.0, Red Blood Count 3.10L, Hemoglobin 9.3L, Hematocrit 28.6L , Mean Corpuscular Volume 92, Mean Corpuscular Hemoglobin 30.1, Mean Corpuscular Hemoglobin Concent 32.6, Red Cell Distribution Width 13.7, Platelet Count 90L, Mean Platelet Volume 8.6, Neutrophils (%) (Auto) , Lymphocytes (%) ( Auto) , Monocytes (%) (Auto) , Eosinophils (%) (Auto) , Basophils (%) (Auto) , Differential Total Cells Counted 100, Neutrophils % (Manual) 76H, Lymphocytes % (Manual) 16L, Monocytes % (Manual) 2, Eosinophils % (Manual) 6H, Basophils % ( Manual) 0, Band Neutrophils 0, Platelet Estimate DecreasedL, Platelet Morphology Normal, Red Blood Cell Morphology Normal, Sodium Level 141, Potassium Level 5.0, Chloride Level 102, Carbon Dioxide Level 30, Anion Gap 9, Blood Urea Nitrogen 60H, Creatinine 5.4H, Estimat Glomerular Filtration Rate 8.4 , Glucose Level 87, Hemoglobin A1c 5.8, Uric Acid 3.9, Calcium Level 8.6, Phosphorus Level 5.0H, Magnesium Level 2.4, Iron Level 88, Total Iron Binding Capacity 178L, Percent Iron Saturation 49, Unsaturated Iron Binding 90L, Ferritin 1401H, Total Bilirubin 0.2, Gamma Glutamyl Transpeptidase 11, Aspartate Amino Transf (AST/SGOT) 13L, Alanine Aminotransferase (ALT/SGPT) 11L, Alkaline Phosphatase 66, C-Reactive Protein, Quantitative 2.6H, Pro-B-Type Natriuretic Peptide 606H, Total Protein 6.6, Albumin 3.4, Globulin 3.2, Albumin/ Globulin Ratio 1.1, Triglycerides Level 47, Cholesterol Level 127, LDL Cholesterol 53, HDL Cholesterol 61H, Cholesterol/HDL Ratio 2.1L, Vitamin B12 Level 503, Folate 8.8, Thyroid Stimulating Hormone (TSH) 1.907 Height (Feet): 5 Height (Inches): 9.00 Weight (Pounds): 187 dIalia Gomez MD Feb 19, 2019 12:43
--- NOTE | 2019-02-19 13:19 | NUR ---
NURSE NOTES: DR. HELTON IS OKAY TO DISCHARGE PATIENT BACK.
--- NOTE | 2019-02-19 13:26 | NUR ---
DISCHARGE DISPOSITION: PLEASE READ PATIENT TO BE DISCHARGED TO [facility] [address] [facility] [address] T: [phone]>> CALL RN FOR REPORT [facility] ETA [phone] [facility]ENT[facility] VM LEFT FOR SISTER HAYDE CAMP [phone]
--- NOTE | 2019-02-19 14:52 | NUR ---
*-* INSURANCE *-* ALL CLINICALS AND REVIEWS HAVE BEEN FAXED TO: [employer] [place] F:[phone]
--- NOTE | 2019-02-19 14:57 | Nephrology Progress Note ---
Assessment/Plan Problem List: (1) Psychiatric illness (2) ESRD (end stage renal disease) (3) AV shunt malfunction (4) Seizure disorder Assessment ESRD Dialysis access malfunction- post op date 02/18 Psych Disease Sz disorder Plan HD 02/18 next 02/20 if in house Keep BP in check per orders Subjective ROS Limited/Unobtainable: No Constitutional: Reports: malaise, other - anxious Objective Objective Last 24 Hour Vital Signs Date Time Temp Pulse Resp B/P (MAP) Pulse Ox O2 Delivery O2 Flow Rate FiO2 02/19/19 12:37 98.2 02/19/19 12:17 98.2 109 18 99/48 (65) 94 02/19/19 09:00 Room Air 02/19/19 08:19 84 47 96 02/19/19 08:00 98.3 111 18 96/59 (71) 97 02/19/19 04:00 97.0 101 18 102/51 (68) 95 02/19/19 00:00 97.1 104 18 98/57 (71) 94 02/18/19 20:51 Room Air 02/18/19 20:00 98.7 99 99/51 (67) 02/18/19 16:00 98.2 101 94/46 (62) 02/18/19 15:26 98.1 Intake and Output 02/18/19 02/19/19 18:59 06:59 Intake Total 550 ml 240 ml Output Total 50 ml Balance 500 ml 240 ml Intake Oral 200 ml 240 ml IV Total 350 ml Estimated Blood Loss 50 ml # Voids 1 Laboratory Tests 02/18/19 19:45: Reticulocyte Count 0.4L, Prothrombin Time 10.3, Prothromb Time International Ratio 1.0, Lactate Dehydrogenase 162, Hepatitis A IgM Antibody [Pending], Hepatitis B Surface Antigen [Pending], Hepatitis B Core IgM Antibody [Pending], Hepatitis C Antibody [Pending], HIV (1&2) Antibody Rapid Negative 02/19/19 07:07: White Blood Count 6.0, Red Blood Count 3.10L, Hemoglobin 9.3L, Hematocrit 28.6L , Mean Corpuscular Volume 92, Mean Corpuscular Hemoglobin 30.1, Mean Corpuscular Hemoglobin Concent 32.6, Red Cell Distribution Width 13.7, Platelet Count 90L, Mean Platelet Volume 8.6, Neutrophils (%) (Auto) , Lymphocytes (%) ( Auto) , Monocytes (%) (Auto) , Eosinophils (%) (Auto) , Basophils (%) (Auto) , Differential Total Cells Counted 100, Neutrophils % (Manual) 76H, Lymphocytes % (Manual) 16L, Monocytes % (Manual) 2, Eosinophils % (Manual) 6H, Basophils % ( Manual) 0, Band Neutrophils 0, Platelet Estimate DecreasedL, Platelet Morphology Normal, Red Blood Cell Morphology Normal, Sodium Level 141, Potassium Level 5.0, Chloride Level 102, Carbon Dioxide Level 30, Anion Gap 9, Blood Urea Nitrogen 60H, Creatinine 5.4H, Estimat Glomerular Filtration Rate 8.4 , Glucose Level 87, Hemoglobin A1c 5.8, Uric Acid 3.9, Calcium Level 8.6, Phosphorus Level 5.0H, Magnesium Level 2.4, Iron Level 88, Total Iron Binding Capacity 178L, Percent Iron Saturation 49, Unsaturated Iron Binding 90L, Ferritin 1401H, Total Bilirubin 0.2, Gamma Glutamyl Transpeptidase 11, Aspartate Amino Transf (AST/SGOT) 13L, Alanine Aminotransferase (ALT/SGPT) 11L, Alkaline Phosphatase 66, C-Reactive Protein, Quantitative 2.6H, Pro-B-Type Natriuretic Peptide 606H, Total Protein 6.6, Albumin 3.4, Globulin 3.2, Albumin/ Globulin Ratio 1.1, Triglycerides Level 47, Cholesterol Level 127, LDL Cholesterol 53, HDL Cholesterol 61H, Cholesterol/HDL Ratio 2.1L, Vitamin B12 Level 503, Folate 8.8, Thyroid Stimulating Hormone (TSH) 1.907 Height (Feet): 5 Height (Inches): 9.00 Weight (Pounds): 187 General Appearance: no apparent distress Cardiovascular: tachycardia Respiratory/Chest: decreased breath sounds Abdomen: other - obese Objective no other change Riley Patel MD Feb 19, 2019 14:57
--- NOTE | 2019-02-19 15:00 | NUR ---
NURSE NOTES: report given to [facility]. patient preferred to call family member for her discharge. awaiting for a callback.
[2019-02-19 16:09] VITALS: BP 141/75
--- NOTE | 2019-02-19 17:15 | History and Physical Report ---
DATE OF ADMISSION: 02/17/2019 SOURCE OF INFORMATION: Patient and EMR. HISTORY OF PRESENT ILLNESS: The patient is a pleasant 48-year-old female with a history of end-stage renal disease, on hemodialysis with malfunctioning of the fistula in the right arm. At the time of evaluation, the patient denies chest pain or shortness of breath. The patient appears anxious. No nausea. No vomitus. No diarrhea. No constipation. No fever. No chills. MEDICATIONS: Current hospital medications including, but not limited to Abilify, bisacodyl, Keppra, Seroquel. PAST MEDICAL HISTORY: Including but not limited to end-stage renal disease on hemodialysis, psychiatric disorder. FAMILY HISTORY: Reviewed, noncontributory. SOCIAL HISTORY: The patient is currently residing in a [facility]pc facility. Denies current active history of alcohol abuse or smoking. PHYSICAL EXAMINATION: VITAL SIGNS: Blood pressure 130/80, temperature 98.2, pulse oximetry 98% on room air, pulse rate 105, respiratory rate 18. HEAD AND NECK: Atraumatic, normocephalic. CHEST: Clear to auscultation. HEART: S1, S2. Regular rate and rhythm. ABDOMEN: Soft. No organomegaly. MUSCULOSKELETAL: Positive for the right upper arm AV fistula placement. No tenderness. No erythema. NEUROLOGIC: The patient is awake, alert, oriented x3. Appears conscious, anxious. LABORATORY DATA: Dated 02/17/2019 shows WBC 6.9, hemoglobin 10.9, platelet count of 138. Sodium 136, potassium 5.1, BUN 82, creatinine of 7.2. ASSESSMENT AND PLAN: 1. End-stage renal disease, on hemodialysis. 2. Malfunction of the left AV fistula, we will continue with the interim hemodialysis using the right upper chest wall PermCath, the patient is scheduled for the AV fistulogram. 3. Anemia of chronic disease. 4. Psychiatric disorder. 5. GI and DVT prophylaxes. PLAN OF CARE: Case discussed with vascular surgeon, Dr. Dickey. Nephrology, Dr. Patel (covering for Dr. Angeles). We will monitor the electrolytes. Hemodialysis per Dr. Patel. COMMENTS: The time of this dictation does not reflect the actual time of encounter. Stanammad Ne Gomez DR: KINZA JOB#: [id number] CC:
--- NOTE | 2019-02-19 18:25 | NUR ---
NURSE NOTES: transported by an ambulance. removed IV access. AV shunt and permacth drsgs are dry and intact. covered trach stoma with a 4x4 drsg. no drainage and leakage. patient is in stable condition. no acute resp distress noted. personal belongings noted and reviewed.
--- NOTE | 2019-02-20 14:56 | Hematology/Onc Progress Note ---
Assessment/Plan Assessment/Plan Assessment and Recs: # Thrombocytopenia - potential causes multifactorial, evaluate liver and viral etiologies to begin, also could be related to underlying medications patient has received. --> Hep panel and HIV ordered - both negative --> US abd to evaluate for cirrhosis and hsm ordered - Results: Coarsened hepatic echogenicity, may indicate hepatocellular disease. No definite surface nodularity to suggest cirrhosis, --> Peripheral smear ordered to evaluate for blasts /schistocytes --> abx and other meds have been reviewed --> ok for ppx if plt >50k w/ either heparin or lovenox --> Transfuse if Plt < 20k and fever, or if Plt < 10k without fever # Anemia of chronic disease due to underlying chronic medical issues, multifactorial is due to ckd likely --> Anemia workup has been reviewed. Ferritin 1401 --> No evidence of hemolysis is noted, peripheral smear has been reviewed. --> Hgb goal >7. Transfuse prn. --> Epogen or iron at this time is not particularly indicated --> Medications have been reviewed # AV shunt malfunction ---> Possibly an AV shunt clot. This patient is admitted for revision of her shunt by vascular surgery. # ESRD as per HD --> renal recs appreciated # Hyperkalemia --> kayxelate prn The timing of this note does not necessarily reflect the time of the patient was seen. GREATLY APPRECIATE CONSULTATION. Subjective Hematologic/Lymphatic: Reports: anemia Allergies: Coded Allergies: No Known Allergies (Unverified , 02/17/19) All Systems: reviewed and negative except above Subjective 02/19: Pt in stable. condition. DC planning. Objective Objective Last 24 Hour Vital Signs Date Time Temp Pulse Resp B/P (MAP) Pulse Ox O2 Delivery O2 Flow Rate FiO2 02/19/19 16:09 98.1 81 16 141/75 (97) 97 02/19/19 12:37 98.2 02/19/19 12:17 98.2 109 18 99/48 (65) 94 02/19/19 09:00 Room Air 02/19/19 08:19 84 47 96 02/19/19 08:00 98.3 111 18 96/59 (71) 97 02/19/19 04:00 97.0 101 18 102/51 (68) 95 02/19/19 00:00 97.1 104 18 98/57 (71) 94 02/18/19 20:51 Room Air 02/18/19 20:00 98.7 99 99/51 (67) 02/18/19 16:00 98.2 101 94/46 (62) 02/18/19 15:26 98.1 Intake and Output 02/19/19 02/20/19 19:00 07:00 Intake Total 480 ml Balance 480 ml Intake Oral 480 ml # Voids 2 Labs Test 02/17/19 20:55 02/18/19 05:35 02/18/19 19:45 02/19/19 07:07 White Blood Count 6.9 K/UL (4.8-10.8) 6.5 K/UL (4.8-10.8) 6.0 K/UL (4.8-10.8) Red Blood Count 3.65 M/UL (4.20-5.40) 3.81 M/UL (4.20-5.40) 3.10 M/UL (4.20-5.40) Hemoglobin 10.9 G/DL (12.0-16.0) 11.3 G/DL (12.0-16.0) 9.3 G/DL (12.0-16.0) Hematocrit 32.4 % (37.0-47.0) 35.8 % (37.0-47.0) 28.6 % (37.0-47.0) Mean Corpuscular Volume 89 FL (80-99) 94 FL (80-99) 92 FL (80-99) Mean Corpuscular Hemoglobin 29.8 PG (27.0-31.0) 29.6 PG (27.0-31.0) 30.1 PG (27.0-31.0) Mean Corpuscular Hemoglobin Concent 33.5 G/DL (32.0-36.0) 31.6 G/DL (32.0-36.0) 32.6 G/DL (32.0-36.0) Red Cell Distribution Width 13.3 % (11.6-14.8) 13.7 % (11.6-14.8) 13.7 % (11.6-14.8) Platelet Count 138 K/UL (150-450) 102 K/UL (150-450) 90 K/UL (150-450) Mean Platelet Volume 6.7 FL (6.5-10.1) 7.9 FL (6.5-10.1) 8.6 FL (6.5-10.1) Neutrophils (%) (Auto) 63.9 % (45.0-75.0) 68.8 % (45.0-75.0) % (45.0-75.0) Lymphocytes (%) (Auto) 20.8 % (20.0-45.0) 17.4 % (20.0-45.0) % (20.0-45.0) Monocytes (%) (Auto) 10.2 % (1.0-10.0) 9.0 % (1.0-10.0) % (1.0-10.0) Eosinophils (%) (Auto) 4.1 % (0.0-3.0) 4.1 % (0.0-3.0) % (0.0-3.0) Basophils (%) (Auto) 1.0 % (0.0-2.0) 0.7 % (0.0-2.0) % (0.0-2.0) Prothrombin Time 9.6 SEC (9.30-11.50) 10.3 SEC (9.30-11.50) Prothromb Time International Ratio 0.9 (0.9-1.1) 1.0 (0.9-1.1) Activated Partial Thromboplast Time 18 SEC (23-33) Sodium Level 136 MMOL/L (136-145) 139 MMOL/L (136-145) 141 MMOL/L (136-145) Potassium Level 5.1 MMOL/L (3.5-5.1) 5.8 MMOL/L (3.5-5.1) 5.0 MMOL/L (3.5-5.1) Chloride Level 98 MMOL/L (98-107) 101 MMOL/L (98-107) 102 MMOL/L (98-107) Carbon Dioxide Level 28 MMOL/L (21-32) 27 MMOL/L (21-32) 30 MMOL/L (21-32) Anion Gap 10 mmol/L (5-15) 11 mmol/L (5-15) 9 mmol/L (5-15) Blood Urea Nitrogen 82 mg/dL (7-18) 93 mg/dL (7-18) 60 mg/dL (7-18) Creatinine 7.2 MG/DL (0.55-1.30) 7.3 MG/DL (0.55-1.30) 5.4 MG/DL (0.55-1.30) Estimat Glomerular Filtration Rate 6.0 mL/min (>60) 5.9 mL/min (>60) 8.4 mL/min (>60) Glucose Level 110 MG/DL (74-106) 103 MG/DL (74-106) 87 MG/DL (74-106) Calcium Level 9.1 MG/DL (8.5-10.1) 9.5 MG/DL (8.5-10.1) 8.6 MG/DL (8.5-10.1) Total Bilirubin 0.2 MG/DL (0.2-1.0) 0.3 MG/DL (0.2-1.0) 0.2 MG/DL (0.2-1.0) Aspartate Amino Transf (AST/SGOT) 10 U/L (15-37) 9 U/L (15-37) 13 U/L (15-37) Alanine Aminotransferase (ALT/SGPT) 14 U/L (12-78) 18 U/L (12-78) 11 U/L (12-78) Alkaline Phosphatase 75 U/L (46-116) 76 U/L (46-116) 66 U/L (46-116) Total Protein 7.1 G/DL (6.4-8.2) 7.6 G/DL (6.4-8.2) 6.6 G/DL (6.4-8.2) Albumin 3.9 G/DL (3.4-5.0) 3.9 G/DL (3.4-5.0) 3.4 G/DL (3.4-5.0) Globulin 3.2 g/dL 3.7 g/dL 3.2 g/dL Albumin/Globulin Ratio 1.2 (1.0-2.7) 1.1 (1.0-2.7) 1.1 (1.0-2.7) Differential Total Cells Counted 100 100 Neutrophils % (Manual) 68 % (45-75) 76 % (45-75) Lymphocytes % (Manual) 17 % (20-45) 16 % (20-45) Monocytes % (Manual) 12 % (1-10) 2 % (1-10) Eosinophils % (Manual) 2 % (0-3) 6 % (0-3) Basophils % (Manual) 0 % (0-2) 0 % (0-2) Band Neutrophils 1 % (0-8) 0 % (0-8) Other Cell Type Pathologist review Platelet Estimate Decreased Decreased Platelet Morphology Normal Normal Red Blood Cell Morphology Normal Normal Reticulocyte Count 0.4 % (0.5-2.0) Lactate Dehydrogenase 162 U/L (81-234) Hepatitis A IgM Antibody Negative (Negative) Hepatitis B Surface Antigen Negative (Negative) Hepatitis B Core IgM Antibody Negative (Negative) Hepatitis C Antibody <0.1 s/co ratio HIV (1&2) Antibody Rapid Negative (NEGATIVE) Hemoglobin A1c 5.8 % (4.3-6.0) Uric Acid 3.9 MG/DL (2.6-7.2) Phosphorus Level 5.0 MG/DL (2.5-4.9) Magnesium Level 2.4 MG/DL (1.8-2.4) Iron Level 88 ug/dL (50-175) Total Iron Binding Capacity 178 ug/dL (250-450) Percent Iron Saturation 49 % (15-50) Unsaturated Iron Binding 90 ug/dL (112-346) Ferritin 1401 NG/ML (8-388) Gamma Glutamyl Transpeptidase 11 U/L (5-85) C-Reactive Protein, Quantitative 2.6 mg/dL (0.00-0.90) Pro-B-Type Natriuretic Peptide 606 pg/mL (0-125) Triglycerides Level 47 MG/DL (30-150) Cholesterol Level 127 MG/DL (< 200) LDL Cholesterol 53 mg/dL (<100) HDL Cholesterol 61 MG/DL (40-60) Cholesterol/HDL Ratio 2.1 (3.3-4.4) Vitamin B12 Level 503 PG/ML (193-986) Folate 8.8 NG/ML (8.6-58.9) Thyroid Stimulating Hormone (TSH) 1.907 uiU/mL (0.358-3.740) Height (Feet): 5 Height (Inches): 9.00 Weight (Pounds): 187 Objective PHYSICAL EXAM Vitals: reviewed, normal Gen: no apparent distress, alert, GCS 15, non-toxic Head: normocephalic, atraumatic Eyes: bilateral eye normal inspection ENT: hearing grossly normal, normal pharynx, no angioedema, normal voice Neck: full range of motion, supple/symm/no masses Respiratory: chest non-tender, lungs clear, normal breath sounds Cv: regular rate, rhythm, no edema Gastrointestinal: normal bowel sounds, non tender, soft, non-distended, no guarding, no rebound Rectal: deferred Musculoskeletal: normal inspection, back normal, normal range of motion Skin: normal color, no rash, warm/dry, well hydrated Kenyon Ortiz MD Feb 20, 2019 14:56
--- NOTE | 2019-02-22 09:04 | Discharge Summary ---
Discharge Summary Discharge Summary _ DATE OF ADMISSION: 02/17 DATE OF DISCHARGE: 02/19/2019 DISCHARGED BY: REASON FOR ADMISSION: 48 years old female with past medical history of end-stage renal disease, on hemodialysis, seizure disorder, blind, psychiatric disorder, presented with malfunctioning fistula in the right arm. Last hemodialysis was done the day prior to presentation. Patient denied chest pain , shortness of breath. No fever , no chills. Upon evaluation vital signs were stable. Laboratory work-up revealed no leukocytosis, hemoglobin 10.9, hematocrit 32.4, platelet count 138. Stable electrolytes. BUN 82, creatinine 7.2, consistent with known patient history of end-stage renal disease. Stable LFT 9. Patient admitted for further management. CONSULTANTS: brand lead Dr. Patel cotton ball bagger/oncologist Dr. Ortiz vascular surgeon Dr. Dickey [facility] COURSE: Patient admitted. Nephrology and vascular surgery consults were requested. Interim dialysis was continued, using the right upper chest wall Perma-cath. Volumes and renal parameters were closely monitored. Electrolytes corrected as needed Patient subsequently undergone right arm fistulogram and [employer] with revision. Pain management was addressed. Supportive care provided. Hemoglobin and hematocrit were closely monitored to keep hemoglobin above 7. Anemia work-up was consistent with anemia of chronic disease. Ferritin 1401. Patient had anemia of chronic disease due to underlying chronic medical issues, including anemia of chronic kidney disease. Patient also noted to have thrombocytopenia. Hepatitis panel and HIV test were both negative. Abdominal ultrasound revealed coarsened hepatic echogenicity, possibly indicative of hepatocellular disease. No definite surface nodularity to suggest cirrhosis. Counts were closely monitored. Prior to discharge platelets 90, hemoglobin 9.3, hematocrit 28.6. Seizure precautions were maintained. Keppra was continued. No evidence of seizure activity while in the hospital. Fall precautions were maintained. Patient was ready for transfer to nursing facility as long-term for further management. FINAL DIAGNOSES: Malfunctioning arteriovenous fistula Fistulogram and [employer] with revision of right malfunctioning AV fistula End-stage renal disease , on hemodialysis Anemia of chronic kidney disease Thrombocytopenia Psychiatric disorder Seizure disorder DISCHARGE MEDICATIONS: See Medication Reconciliation list. DISCHARGE INSTRUCTIONS: Patient was discharged to nursing facility /[facility] as long[facility]term. Follow up with care provider at the facility . I have been assigned to dictate discharge summary for this account. I was not involved in the patient's management. Lauryn Vail NP Feb 22, 2019 09:04
--- NOTE | 2019-03-09 02:45 | Operative Note - Dictated ---
DATE OF OPERATION: 02/18/2019 NOTE: POOR AUDIO PREOPERATIVE DIAGNOSES: 1. Nonfunctioning dialysis arteriovenous fistula in the right upper extremity. 2. End-stage renal disease. POSTOPERATIVE DIAGNOSES: 1. Nonfunctioning dialysis arteriovenous fistula in the right upper extremity. 2. End-stage renal disease. FINDINGS: Below. PROCEDURES: 1. Right arterialized basilic vein dialysis arteriovenous fistula access and introducer sheath placement in the venous outflow direction. 2. Right common femoral vein access and introducer sheath placement. 3. Catheterization via AV fistula with the catheter tip in the right innominate vein. 4. Catheterization via right common femoral vein with the catheter tip in the superior vena cava. 5. Right arm dialysis fistulogram. 6. Selective venogram. 7. Selective superior vena cavogram. 8. Percutaneous transluminal balloon angioplasty ([employer]) of the right subclavian vein ([place] 5 mm x 4 cm). 9. Percutaneous transluminal angioplasty of the right innominate vein ([place] 5 mm x 4 cm). 10. Primary surgical repair of the arterialized basilic vein dialysis arteriovenous fistula access site. 11. Dilation of the occluded superior vena cava. 12. Intraoperative ultrasound. 13. Digital subtraction angiography. 14. Supervision and interpretation of angiogram and intervention. 15. Selective azygos venogram. 16. Attempted placement of a stent in the right innominate vein. 17. Complex intervention (- 22) due to severely extensive occlusion of the central vein and multiple previous dialysis procedures and comorbidities. SURGEON: Robert Dickey M.D. ANESTHESIA: General. NURSE HEARING IMPAIRED TEACHER: , POT RELINER. INDICATION: The patient has an AV fistula in the right arm, which is patent and has briefly been accessed. There is some evidence of outflow obstruction on the duplex scan as well as physical examination with some edema of the limb and collateral veins in the area of the chest visible. The fistulogram with possible intervention was recommended. INTRAOPERATIVE FINDINGS/INTERPRETATION OF THE RESULTS: The inflow from the brachial artery anastomosis into the AV fistula is widely patent. There is a tributary to the vein in the distal upper arm, which is patent. The remainder of the transposed vein is widely patent. The axillary vein is patent. The subclavian vein is occluded in its mid segment where extensive collateral veins are noted communicating with the jugular vein and the azygos vein. There is reconstitution of the vena cava to collaterals. The existing tunneled catheter via right internal jugular and its tip in the right innominate vein at the confluence of the innominate vein. The through the right common femoral vein shows a patent IVC bifurcation iliac veins as well as the right common femoral vein, which is patent. The selective superior vena cavogram shows an occluded SVC at this juncture with the right innominate vein. There is communication with the azygos vein and the central venous outflow of the AV fistula. Post intervention, there is some improvement in the occluded segment from the subclavian vein all the way to the superior vena cava with some more of the subclavian vein now visible with contrast and the azygos vein, however remains widely patent outflow in the central venous system for the AV fistula. The occlusion in the superior vena cava remains. Some dilation of the superior vena cava was also noted, but more remains occluded at the juncture of the innominate vein. An attempt at additional intervention to treat the obstruction was unsuccessful due to lack of needed supplies and therefore the patient will be rescheduled for another attempt in the future. The tunneled catheter was left in place as the patient's dialysis access until further improvement in the AV fistula can be obtained through intervention. PROCEDURE IN DETAIL: With the patient in supine position, the right upper extremity and the right groin were shaved, prepped, and draped in usual sterile fashion. The skin was infiltrated with local anesthetic and the AV fistula was accessed from the venous side near the arterial anastomosis with a micropuncture needle. Using a single wall puncture and modified Seldinger technique, a wire was advanced into the vessel and the needle removed. Over the wire, the micropuncture introducer sheath with dilator placed coaxially into the vessel. Using the Seldinger technique, a puncture introducer sheath and dilator were placed coaxially over the wire and advanced into the vein, and wire and dilator removed with good arterial backbleeding noted from the sheath and above findings were noted. adequately. The sheath was exchanged for a 5-Nepali regular sheath over the wire and catheters were used to try crossing the occluded segment and the AV fistula approach, but this was not successful. The right femoral approach was therefore not attempted and the vein was accessed similarly as above. The initial venacavogram was performed through the access sheath and the above findings noted. The wire and the catheter was advanced into the superior vena cava. Venacavogram was performed and the above findings were noted. Different wires and catheters were used to attempt crossing of the occluded superior vena cava from this approach. A 0.018 wire was initiated through the occlusion through the AV fistula access and brought out the AV fistula introducer sheath. Over the wire, the attempt was made to pass balloon all the way through the occlusion, but we could not pass the catheter through the occlusion over the wire. The balloon catheter were used to dilate the portion that could be reached and an additional required smaller balloon and stents which were not available and therefore the sheath were removed. After the completion angiogram showed satisfactory results as described above. The AV fistula access sites were 5-0 Prolene suture and manual compression was maintained for the right groin access site and sterile dressings were placed. The patient transferred out of the room in stable condition. She tolerated the procedure well. ESTIMATED BLOOD LOSS: Minimal. COMPLICATIONS: None. TOTAL FLUOROSCOPY TIME: 35 minutes and 28 seconds. TOTAL CONTRAST: 50 mL. Robert Dickey M.D. DR: PATRICE JOB#: [id number] CC: Ne Oliver M.D. ; FAX#: [phone]
== END 2019-02-19 18:25 | disposition home or self-care (01) | DRG 252 ==
LOC: EDBD 19:40 → EMR 20:03 → 4E 21:11 → EDBEDREQ 22:26 → 4E 23:58
PROC: 05733ZZ Dilation of Right Innominate Vein, Percutaneous Approach (ICD-10-PCS; principal; 2019-02-18 07:30)
PROC: 05753ZZ Dilation of Right Subclavian Vein, Percutaneous Approach (ICD-10-PCS; principal; 2019-02-18 07:30)
PROC: 027V3ZZ Dilation of Superior Vena Cava, Percutaneous Approach (ICD-10-PCS; principal; 2019-02-18 07:30)
DX: T82.590A Other mechanical complication of surgically created arteriovenous fistula, initial encounter (principal); N18.6 End stage renal disease; Y83.8 Other surgical procedures as the cause of abnormal reaction of the patient, or of later complication, without mention of misadventure at the time of the procedure; Z99.2 Dependence on renal dialysis; D69.6 Thrombocytopenia, unspecified; G40.909 Epilepsy, unspecified, not intractable, without status epilepticus; H54.7 Unspecified visual loss; D63.1 Anemia in chronic kidney disease; F99 Mental disorder, not otherwise specified; E66.9 Obesity, unspecified
CPT/HCPCS: 36415; 76000; 76700; 80053; 80061; 80299; 82607; 82728; 82746; 82977; 83036; 83540; 83550; 83615; 83735; 83880; 84100; 84443; 84550; 85007; 85025; 85044; 85060; 85610; 85730; 86140; 86703; 86705; 86709; 86803; 87081; 87340; 94003; 94150; 99285; J2250; J2370; J2405